=== PATIENT | female | born 2000 | race Two or more races ===

== ENCOUNTER 2023-07-10 08:03 | Outpatient (CLI) | payer OTHER | END 2023-07-10 08:08 | disposition home or self-care (01) | LOC: PRENATAL 08:03 | PROVIDERS: ATTEND Obstetrics & Gynecology Maternal & Fetal Medicine | DX: O35.9XX0 Maternal care for (suspected) fetal abnormality and damage, unspecified, not applicable or unspecified (principal); O35.3XX0 Maternal care for (suspected) damage to fetus from viral disease in mother, not applicable or unspecified; O44.00 Complete placenta previa NOS or without hemorrhage, unspecified trimester; Z3A.19 19 weeks gestation of pregnancy ==

== ENCOUNTER 2023-09-06 09:24 | Outpatient (CLI) | payer OTHER | END 2023-09-06 09:25 | disposition home or self-care (01) | LOC: PRENATAL 09:24 | PROVIDERS: ATTEND Obstetrics & Gynecology Maternal & Fetal Medicine | DX: O26.849 Uterine size-date discrepancy, unspecified trimester (principal); Z3A.28 28 weeks gestation of pregnancy ==

== ENCOUNTER 2023-10-18 09:05 | Outpatient (CLI) | payer OTHER ==
[~2023-10-18 09:05] MED LIST: PREDNISONE5 MG/5 ML OPHT; PRENATAL TABLE1 EAC1 PO
== END 2023-10-18 09:06 | disposition home or self-care (01) ==
LOC: PRENATAL 09:05
PROVIDERS: ATTEND Obstetrics & Gynecology Maternal & Fetal Medicine
DX: O26.849 Uterine size-date discrepancy, unspecified trimester (principal); O36.8199 Decreased fetal movements, unspecified trimester, other fetus; Z3A.34 34 weeks gestation of pregnancy

== ENCOUNTER 2023-11-21 15:16 | Inpatient (IN) | payer OTHER ==
[~2023-11-21] VITALS: Ht 154.9 cm; Wt 93.4 kg
[2023-11-21 16:05] LABS: HEMOGLOBIN 11.7 g/dL (12.0-15.00); MEAN CELL VOLUME 76.4 fL (80.00-100.00); MEAN CORPUSCULAR HEMOGLOBIN 25.5 pg (27.00-32.0); MEAN CORPUSCULAR HGB CONC 33.4 g/dl (32.0-36.0); PLATELET COUNT 263 K/uL (150-450); RED BLOOD COUNT 4.59 M/uL (4.00-6.00); RED CELL DISTRIBUTION WIDTH 15.4 % (11.5-14.5)
[2023-11-21 16:06] LABS: URINE APPEARANCE Cloudy; URINE BILIRRUBIN Negative (NEGATIVE); URINE BLOOD Negative; URINE COLOR Yellow; URINE GLUCOSE Negative (NEGATIVE); URINE LEUKOCYTE Moderate; URINE NITRATE Negative; URINE PROTEIN Negative (NEGATIVE); URINE UROBILINOGEN 0.2 E.U./dl
[2023-11-21 16:09] LABS: URINE BACTERIA 1084.8 uL (0.0-1933); URINE EPITHELIAL CELLS 72.9 uL (0.0-38.8); URINE WBC 284.6 uL (0.0-23.2)
[2023-11-21 16:32] LABS: INR < 0.93; PARTIAL THROMBOPLASTIN TIME 29.6 SECONDS (22.0-34.0); PROTHROMBIN TIME 9.8 SECONDS (9.0-11.5)
[2023-11-21 16:39] LABS: ALBUMIN 2.7 gm/dL (3.4-5.0); BILIRUBIN TOTAL 0.2 mg/dL (0.3-1.2); CALCIUM 8.9 mg/dL (8.5-10.1); CREATININE SERUM 0.62 mg/dL (0.55-1.02); GFR 117.28; POTASSIUM 3.98 mEq/L (3.5-5.1); TOTAL PROTEIN 6.7 gm/dL (6.4-8.2)
[2023-11-22] MEDS ORDERED: CEFAZOLIN SODIUM 1,000 MG VIAL ONE (12:54)
[2023-11-22] MEDS ORDERED: OXYTOCIN 10 UNITS/ML VIAL ONE ×2 (13:15→19:23)
[2023-11-22] MEDS ORDERED: ERYTHROMYCIN BASE 1 GM TUBE OP ONE ×3 (13:17→16:45)
[2023-11-22] MEDS ORDERED: RINGERS SOLUTION,LACTATED 1,000 ML IV SCH (15:45)
[2023-11-22] MEDS ORDERED: MORPHINE SULFATE 4 MG/ML CARTRIDGE IV PRN (15:45)
[2023-11-22] MEDS ORDERED: OXYTOCIN 1,000 ML IV SCH (15:45)
[2023-11-22] MEDS ORDERED: CEFAZOLIN SODIUM 1,000 MG VIAL IV ONE (16:45)
[2023-11-22] MEDS ORDERED: OXYTOCIN 10 UNITS/ML VIAL IV ONE (16:45)
[2023-11-22] MEDS ORDERED: DOCUSATE SODIUM 100MG CAP PO SCH (17:00)
[2023-11-22 17:15] LABS: ABG PH 7.364 (7.35-7.45); ABG PO2 33.5 mmHg (80-100); ABG pCO2 38.1 mmHg (35-45)
[2023-11-22 17:16] LABS: BASE EXCESS -3.6 mmol/l
[2023-11-22 17:18] LABS: BICARBONATE 21.3 mmol/l (23-25); Tco2 22.4 mmol/l
[2023-11-22 17:19] LABS: o2 21 %
[2023-11-22] MEDS ORDERED: SIMETHICONE 125 MG CAPSULE PO SCH (18:00)
[2023-11-22 19:36] LABS: HEMATOCRIT 32.9 % (36.0-45.00); MEAN CELL VOLUME 76.6 fL (80.00-100.00); MEAN CORPUSCULAR HEMOGLOBIN 25.5 pg (27.00-32.0); MEAN CORPUSCULAR HGB CONC 33.3 g/dl (32.0-36.0); PLATELET COUNT 213 K/uL (150-450); RED CELL DISTRIBUTION WIDTH 15.3 % (11.5-14.5)
[2023-11-22] MEDS ORDERED: PROMETHAZINE HCL 25 MG/ML AMPUL IM PRN (20:00)
[2023-11-22] MEDS ORDERED: MEPERIDINE HCL/PF 50 MG/ML VIAL IM PRN (20:00)
[2023-11-23] MEDS ORDERED: IBUprofen 800 MG TABLET PO PRN (09:00)
[2023-11-23] MEDS ORDERED: OxyCODONE HCL/APAP UD (PERCOCET) PO PRN (12:30)
[2023-11-24] MEDS ORDERED: BISACODYL 10 MG/SUPP.RECT SUPP.RECT RECTAL STA (16:20)
[2023-11-24] MEDS ORDERED: HYDROCORTISONE 2.5% 30 GM TUBE RECTAL SCH (20:27)
== END 2023-11-25 16:55 | disposition home or self-care (01) | DRG 788 ==
LOC: OB/GYN 15:16 → O/R 11-22 06:50 → OB/GYN 11-22 16:22
PROVIDERS: ADMIT Obstetrics & Gynecology; ATTEND Obstetrics & Gynecology
PROC: 4A1HXCZ Monitoring of Products of Conception, Cardiac Rate, External Approach (ICD-10-PCS; 2023-11-22)
PROC: 10D00Z1 Extraction of Products of Conception, Low, Open Approach (ICD-10-PCS; principal; 2023-11-22 13:30)
DX: O82 Encounter for cesarean delivery without indication (principal); Z3A.39 39 weeks gestation of pregnancy; Z37.0 Single live birth; Z20.822 Contact with and (suspected) exposure to COVID-19